=== PATIENT | female | born 1995 | race Hispanic/Latino ===

== ENCOUNTER 2017-10-09 22:30 | Emergency (ER) | payer OTHER ==
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
[2017-10-09 23:50] VITALS: BP 133/77; PULSE 86; RESP 18; TEMP 97.9
[2017-10-10 00:55] VITALS: O2SAT 98
== END 2017-10-09 23:49 | disposition home or self-care (01) ==
LOC: C.ER 22:30
DX: S09.90XA Unspecified injury of head, initial encounter (principal); V49.9XXA Car occupant (driver) (passenger) injured in unspecified traffic accident, initial encounter; E03.9 Hypothyroidism, unspecified